=== PATIENT | female | born 1930 | race Caucasian/White ===

== ENCOUNTER 2018-03-14 03:17 | Emergency (ER) | payer MEDICARE ==
[~2018-03-14] VITALS: Ht 157.5 cm; Wt 76.2 kg
[~2018-03-14 03:17] MED LIST: ASPIR 8181 MG PO; CARDIZEM120 MG PO; CIPROFLOXACIN500 M1 PO; CORTISPORIN EAR10 ML EACH EAR; LISINOPRIL40 MG PO; MAGNESIUM OXID400 MG PO; METFORMIN HCL1000 MG PO; METOPROLOL TART25 MG PO; PLAVIX75 MG PO; PRAVASTATIN SOD40 MG PO; SPIRONOLACTONE25 MG PO
--- NOTE | 2018-03-14 04:33 | Diagnostic Imaging Report ---
History:Fall Comparison studies:None Technique: Axial images were obtained from the skull base to the vertex. Coronal and sagittal images reconstructed from the axial data. Intravenous contrast: None Findings: Scalp/skull: No abnormalities. Extra-axial spaces: No masses. No fluid collections. Brain sulci: Moderately prominent. Ventricles: Moderate compensatory dilatation. No hydrocephalus. Parenchyma: Subtle hypodensities in the supratentorial white matter are small vessel ischemic changes. No masses, hemorrhage, acute or chronic cortical vascular insults. Sellar/suprasellar region: No abnormalities. Craniocervical junction: Patent foramen magnum. No Chiari one malformation. Incidental findings: Atherosclerotic calcifications in the carotid siphons . Impression: No acute abnormalities. Chronic findings: 1. Moderate generalized volume loss. 2. Mild supratentorial white matter small vessel ischemic changes. Signed by: Dr. Jarrett Calderon M.D. on 03/14/2018 4:29 AM
--- NOTE | 2018-03-14 04:36 | Diagnostic Imaging Report ---
History: Fall Comparison studies: None Technique: Axial images were obtained through the cervical region.. Coronal and sagittal images reconstructed from the axial data.. Intravenous contrast: None Findings: Fractures: None. Soft tissues: No gross abnormalities. Atlantoaxial articulation: Intact. Alignment: Normal lordosis. No scoliosis. Cervicomedullary junction: No abnormalities. The foramen magnum is patent. Vertebrae: Bone diffusely demineralized. No infection or neoplasm. Degenerative changes: Degenerated discs from C2 through T2, worst at C6-7. Moderate scattered facet and uncovertebral arthrosis throughout the cervical region. Foraminal stenosis, moderate left at C3-4, C4-5, mild right at C5-6, moderate left at C6-7. Mild spinal canal stenosis at C6-C7 due to a disc osteophyte complex. IMPRESSION: 1. No acute abnormalities. 2. Cannot adequately evaluate for ligament, spinal cord and or vascular abnormalities. 3. Degenerative changes as described Signed by: Dr. Jarrett Calderon M.D. on 03/14/2018 4:32 AM
[2018-03-14] MEDS ORDERED: TETANUS/DIPHTHERIA TOX ADULT 0.5 ML SYR IM ONE (05:00)
== END 2018-03-14 06:15 | disposition home or self-care (01) ==
LOC: ER 03:17
DX: S01.112A Laceration without foreign body of left eyelid and periocular area, initial encounter (principal); W06.XXXA Fall from bed, initial encounter; Y93.84 Activity, sleeping; Y92.003 Bedroom of unspecified non-institutional (private) residence as the place of occurrence of the external cause; I10 Essential (primary) hypertension; E11.9 Type 2 diabetes mellitus without complications
CPT/HCPCS: 70450; 72125; 90471; 90714; 99284

== ENCOUNTER 2019-12-06 17:07 | Emergency (ER) | payer MEDICARE ==
[~2019-12-06] VITALS: Ht 157.5 cm; Wt 76.2 kg
[2019-12-06] MEDS ORDERED: ASPIRIN 81 MG CHEW TAB PO ONE (17:15)
--- NOTE | 2019-12-06 18:27 | Diagnostic Imaging Report ---
Examination: Single AP view of the chest. COMPARISON: None. INDICATION: Chest pain DISCUSSION: Lines/tubes: None. Lungs: The lungs are well inflated and clear. No pneumonia or pulmonary edema. Pleura: No pleural effusion or pneumothorax. Heart and mediastinum: The heart and the mediastinum are unremarkable. Bones and soft tissues: No acute bony abnormalities. IMPRESSION: 1. No acute cardiopulmonary abnormalities. Signed by: Dr. Ruben Hutson M.D. on 12/06/2019 6:24 PM
--- OUTSIDE RECORDS SUMMARY | 2019-12-06 19:46 | XMS REPORT ---
[facility] Address Unknown Phone Unavailable Care Team Providers Care Lead Relay Tester Name Role Phone Ramiro MIX Unavailable Unavailable Problems This patient has no known problems. Allergies, Adverse Reactions, Alerts This patient has no known allergies or adverse reactions. Medications This patient has no known medications. Results Test Description Test Time Test Comments Text Results Atomic Results Result Comments CHEST SINGLE (NOT PORTABLE) 2019-12-06 18:24:00 [place] [address] Patient Name: MARK CASON MR #: [id number] : 1930 Age/Sex: 89/F Req #: [id number] Adm Physician: Ordered by: IMELDA MIX MD Report #: [id number] Location: ER Room/Bed: Procedure: [id number] DX/CHEST SINGLE (NOT PORTABLE) Exam Date: Exam Time: REPORT STATUS: Signed Examination: Single AP view of the chest. COMPARISON: No ne. INDICATION: Chest pain DISCUSSION: Lines/tubes: None. Lungs: The lungs are well inflated and clear. No pneumonia or pulmonary edema. Pleura: No pleural effusion or pneumothorax. Heart and mediastinum: The heart and the mediastinum are unremarkable. Bones and soft tissues: No acute bony abnormalities. IMPRESSION: 1. No acute cardiopulmonary abnormalities. Signed by: Dr. Garcia Matute M.D. on 12/06/2019 6:24 PM Dictated By: GARCIA MATUTE MD 23 Transcribed By: JAIRO on 12/06/191823 COPY TO: IMELDA MIX MD CT BRAIN WO [facility] [address] [address] Patient Name: MARK CASON MR #: [id number] : 1930 Age/Sex: 87/F Req #: [id number] Adm Physician: Ordered by: IMELDA MIX MD Report #: [id number] Location: ER Room/Bed: Procedure: [id number] CT/CT BRAIN WO Exam Date: 03/14/18 Exam Time: 0405 REPORT STATUS: Signed History:Fall Comparison studies:None Technique: Axial images were obtained from the skull base to the vertex. Coronal and sagittal images reconstructed from the axial data. Intravenous contrast: None Findings: Scalp/skull: No abnormalities. Extra-axial spaces: No masses. No fluid collections. Brain sulci: Moderately prominent. Ventricles: Moderate compensatory dilatation. No hydrocephalus. Parenchyma: Subtle hypodensities in the supratentorial white matter are small vessel ischemic changes. No masses, hemorrhage, acute or chronic cortical vascular insults. Sellar/suprasellar region: No abnormalities. Craniocervical junction: Patent foramen magnum. No Chiari one malformation. Incidental findings: Atherosclerotic calcifications in the carotid siphons . Impression: No acute abnormalities. Chronic findings: 1. Moderate generalized volume loss. 2. Mild supratentorial white matter small vessel ischemic changes. Signed by: Dr. Jarrett Calderon M.D. on 03/14/2018 4:29 AM Dictated By: JARRETT CALDERON MD, MD 8 Transcribed By: JAIRO on 03/14/18428 COPY TO: IMELDA MIX MD CT CERVICAL SPINE WO [place] [address] Patient Name: MARK CASON MR #: [id number] : 1930 Age/Sex: 87/F Req #: [id number] Adm Physician: Ordered by: IMELDA MIX MD Report #: [id number] Location: ER Room/Bed: Procedure: [id number] CT/CT CERVICAL SPINE WO Exam Date: 03/14/18 Exam Time: 5 REPORT STATUS: Signed History: Fall Comparison studies: None Technique: Axial images were obtained through the cervical region.. Coronal and sagittal images reconstructed from the axial data.. Intravenous contrast: None Findings: Fractures: None. Soft tissues: No gross abnormalities. Atlantoaxial articulation: Intact. Alignment: Normal lordosis. No scoliosis. Cervicomedullary junction: No abnormalities. The foramen magnum is patent. Vertebrae: Bone diffusely demineralized. No infection or neoplasm. Degenerative changes: Degenerated discs from C2 through T2, worst at C6-7. Moderate scattered facet and uncovertebral arthrosis throughout the cervical region. Foraminal stenosis, moderate left at C3-4, C4-5, mild right at C5-6, moderate left at C6-7. Mild spinal canal stenosis at C6-C7 due to a disc osteophyte complex. IMPRESSION: 1. No acute abnormalities. 2. Cannot adequately evaluate for ligament, spinal cord and or vascular abnormalities. 3. Degenerative changes as described Signed by: Dr. Jarrett Calderon M.D. on 03/14/2018 4:32 AM Dictated By: JARRETT SHARP MD, MD 1 Transcribed By: JAIRO on 03/14/18431 COPY TO: IMELDA MIX MD
[2019-12-06 20:14] LABS: BASOPHILS # (AUTO) 0.1 (0.0-0.1); BASOPHILS % 0.6 % (0.0-1.0); EOSINOPHILS # (AUTO) 0.2 (0.0-0.4); EOSINOPHILS % 1.7 % (0.0-6.0); HEMATOCRIT 37.8 % (34.2-44.1); HEMOGLOBIN 12.3 g/dL (12.0-16.0); LYMPHOCYTES # (AUTO) 3.2 (1.0-3.2); LYMPHOCYTES % 30.5 % (18.0-39.1); MEAN CORPUSCULAR HEMOGLOBIN 30.1 pg (28-32); MEAN CORPUSCULAR HGB CONC 32.5 g/dL (31-35); MEAN CORPUSCULAR VOLUME 92.6 fL (81-99); MONOCYTES # (AUTO) 0.7 (0.2-0.8); MONOCYTES % 6.8 % (4.4-11.3); NEUTROPHILS # (AUTO) 6.3 (2.1-6.9); NEUTROPHILS % 60.1 % (38.7-80.0); PLATELET COUNT 266 x10e3/uL (140-360); RED BLOOD COUNT 4.08 x10e6/uL (3.6-5.1); RED CELL DISTRIBUTION WIDTH 13.8 % (11.7-14.4)
[2019-12-06] MEDS ORDERED: SODIUM CHLORIDE 0.9% 1000ML 1,000 ML ONE (20:14)
[2019-12-06 20:19] LABS: INR 0.98; PROTHROMBIN TIME 13.2 seconds (11.9-14.5)
[2019-12-06 20:20] LABS: PARTIAL THROMBOPLASTIN TIME 27.1 seconds (23.8-35.5)
[2019-12-06 20:31] LABS: ALANINE AMINOTRANSFERASE 22 IU/L (0-55); ALBUMIN 3.8 g/dL (3.5-5.0); ALBUMIN/GLOBULIN RATIO 1.2 (0.8-2.0); ALKALINE PHOSPHATASE 53 IU/L (40-150); ANION GAP 18.2 mmol/L (8-16); BLOOD UREA NITROGEN 19 mg/dL (7-26); BUN/CREATININE RATIO 20 (6-25); CALCIUM 9.8 mg/dL (8.4-10.2); CARBON DIOXIDE 23 mmol/L (22-29); CHLORIDE 101 mmol/L (98-107); CREATINE KINASE 116 IU/L (29-168); CREATININE, SERUM 0.94 mg/dL (0.57-1.11); EST GLOMERULAR FILTRATION RATE 56 ML/MIN (60-); GLUCOSE 111 mg/dL (74-118); POTASSIUM 4.2 mmol/L (3.5-5.1); SODIUM 138 mmol/L (136-145)
== END 2019-12-06 22:00 | disposition home or self-care (01) ==
LOC: ER 17:34
DX: R07.89 Other chest pain (principal); I10 Essential (primary) hypertension; E11.9 Type 2 diabetes mellitus without complications; I25.10 Atherosclerotic heart disease of native coronary artery without angina pectoris; Z95.5 Presence of coronary angioplasty implant and graft
CPT/HCPCS: 36415; 71045; 80053; 82550; 82553; 83735; 83880; 84484; 85025; 85610; 85730; 93005; 99283; J7030

== ENCOUNTER 2020-04-12 12:50 | Observation (INO) | payer MEDICARE ==
[~2020-04-12] VITALS: Ht 160 cm; Wt 65.5 kg
--- OUTSIDE RECORDS SUMMARY | 2020-04-12 12:53 | XMS REPORT | Continuity of Care Document ---
Author Author [facility] Organization [facility] Address [address] [place] [address] Phone Unavailable Care Team Providers Care Tc Operator Name Role Phone Lesly SCHULTZ MD PCP Ramiro MIX Attphys Unavailable Payers Payer Name Policy Type Policy Number Effective Date Expiration Date Lesly Benito [employer] [id number] 2014 00:00:00 [facility] Problems This patient has no known problems. Allergies, Adverse Reactions, Alerts Allergy Name Allergy Type Status Severity Reaction(s) Onset Date Inacti ve Date Treating Clinician Comments Source meperidine HCl Allergy to Substance Active 2018-03-14 00:00 :00 [facility] Medications Ordered Medication Name Filled Medication Name Start Date Stop Da te Current Medication? Ordering Clinician Indication Dosage Frequency Signature (SIG) Comments Components Source Aspirin (Aspir 81) 81 Mg Tablet. Aspirin (Aspir 81) 81 Mg Tablet. Yes 81 Daily [facility] Clopidogrel Bisulfate (Plavix) 75 Mg Tablet Clopidogre l Bisulfate (Plavix) 75 Mg Tablet Yes 75 Daily [facility] Diltiazem Hcl (Cardizem) 120 Mg Tablet Diltiazem Hcl (Cardizem) 120 Mg Tablet Yes 120 Twice A Day [facility] Lisinopril 40 Mg Tablet Lisinopril 40 Mg Tablet Yes 40 Daily [facility] Metformin Hcl 1,000 Mg Tablet Metformin Hcl 1,000 Mg Tablet Yes 1000 Twice A Day [facility] Metoprolol Tartrate 25 Mg Tablet Metoprolol Tartrate 25 Mg Tablet Yes 25 Twice A Day [facility] Pravastatin Sodium 40 Mg Tablet Pravastatin Sodium 40 Mg Tablet Yes 20 Bedtime [facility] Spironolactone 25 Mg Tablet Spironolactone 25 Mg Tablet Yes 25 Twice A Day [facility] Ciprofloxacin/Ciprofloxa Hcl (Ciprofloxa bernardo Er 500 Mg Tablet) 500 Mg Tbmp.24hr, 1 Tab Oral Ciprofloxacin/Ciprofloxa Hcl (Ciprofloxa bernardo Er 500 Mg Tablet) 500 Mg Tbmp.24hr, 1 Tab Oral 2017-04-04 00:00:00 No 1 Tw ice A Day [facility] Magnesium Oxide 400 Mg Tablet, 400 Mg Oral Magnesium O xide 400 Mg Tablet, 400 Mg Oral 2017-04-04 00:00:00 No 400 Twice A Day [facility] Neomycin/Polymyxin B Sulf/Hc (Cortispori n Ear Solution) 10 Ml Solution, 4 Each Ear Neomycin/Polymyxin B Sulf/Hc (Cortispori n Ear Solution) 10 Ml Solution, 4 Each Ear 2017-04-04 00:00:00 No 4 Four Times Cindy y [facility] Procedures Procedure Date / Time Performed Performing Clinician [facility] X-ray of chest, single view 2019-12-06 00:00:00 WARRENIMELDA Ramiro [facility] Encounters Start Date/Time End Date/Time Encounter Type Admission Type Att[facility] Facility Care Department Encounter ID Source 2019-12-06 17:34:00 2019-12-06 22:00:00 Departed Emergency Room 1 [facility] [id number] [facility] 2018-03-14 03:17:00 2018-03-14 06:15:00 Departed Emergency Room 1 [facility] [id number] [facility] Results Test Description Test Time Test Comments Results Result Comments Source Magnesium Level 2019-12-06 21:00:00 Test Item Magnesium Level (test code = 93903-1) 1.4 1.3-2.1 [facility] Dqotfxa2655-17-86 20:56:00* Test Item Value Reference Range Interpretation Comments B-Type Natriuretic Peptide (test code = 60872-5) 34.4 0-100 [facility]ase JF2527-15-11 20:39:00* Test Item Value Reference Range Interpretation Comments Creatine Kinase MB (test code = 98574-3) 0.80 0-5.0 [facility] Q6830-04-98 20:39:00* Test Item Value Reference Range Interpretation Comments Troponin I (test code = FQM4800) < 0.001 0-0.300 [facility] Excie3970-48-49 20:31:00* Test Item Value Reference Range Interpretation Comments Sodium Level (test code = 2951-2) 138 136-145 [facility] Saryg9759-16-34 20:31:00* Test Item Value Reference Range Interpretation Comments Potassium Level (test code = 2823-3) 4.2 3.5-5.1 [facility]loride Gqajs1146-22-02 20:31:00* Test Item Value Reference Range Interpretation Comments Chloride Level (test code = 2075-0) 101 98-107 [facility] Dioxide Qzyjk8127-23-40 20:31:00* Test Item Value Reference Range Interpretation Comments Carbon Dioxide Level (test code = 2028-9) 23 22-29 [facility]Anion Axa0362-23-89 20:31:00* Test Item Value Reference Range Interpretation Comments Anion Gap (test code = 83911-0) 18.2 8-16 H [facility] Urea Czerdpwj0981-97-22 20:31:00* Test Item Value Reference Range Interpretation Comments Blood Urea Nitrogen (test code = 3094-0) 19 7-26 [facility]inine2020-02-04 20:31:00* Test Item Value Reference Range Interpretation Comments Creatinine (test code = 2160-0) 0.94 0.57-1.11 [facility]UN/Creatinine Quldl9817-19-20 20:31:00* Test Item Value Reference Range Interpretation Comments BUN/Creatinine Ratio (test code = 3097-3) 20 6-25 [facility]Estimat Glomerular Filtration Rate 2019-12-06 20:31:00* Test Item Value Reference Range Interpretation Comments Estimat Glomerular Filtration Rate (test code = 217889569) 56 >60 L Ranges were taken from the National Kidney Disease Education Program and the [employer] literature.Reference ranges:60 or greater: Ethpcp93-23 ( for 3 consecutive months): Chronic kidney disease 15 or less: Kidney failureHemphill County HospitalGlucose Rpkja4536-39-02 20:31:00* Test Item Value Reference Range Interpretation Comments Glucose Level (test code = CSU7916) 111 74-118 [facility]Calcium Wudft0771-80-28 20:31:00* Test Item Value Reference Range Interpretation Comments Calcium Level (test code = 34352-9) 9.8 8.4-10.2 [facility] HospitalTotal Wkmkeuexj2275-83-52 20:31:00* Test Item Value Reference Range Interpretation Comments Total Bilirubin (test code = 1975-2) 0.3 0.2-1.2 [facility] HospitalAspartate Amino Transf (AST/SGOT) 2019-12-06 20:31:00* Test Item Value Reference Range Interpretation Comments Aspartate Amino Transf (AST/SGOT) (test code = Aspartate Amino Transf (AST/SGOT)) 16 5-34 [facility]Alanine Aminotransferase (ALT/SGPT) 2019-12-06 20:31:00* Test Item Value Reference Range Interpretation Comments Alanine Aminotransferase (ALT/SGPT) (test code = 1742-6) 22 0-55 [facility] HospitalTotal Ghtsgtr8301-44-27 20:31:00* Test Item Value Reference Range Interpretation Comments Total Protein (test code = 2885-2) 6.9 6.5-8.1 [facility] HospitalAlbumin2020-02-04 20:31:00* Test Item Value Reference Range Interpretation Comments Albumin (test code = 1751-7) 3.8 3.5-5.0 [facility]Globulin2020-02-04 20:31:00* Test Item Value Reference Range Interpretation Comments Globulin (test code = 64714-6) 3.1 2.3-3.5 [facility] HospitalAlbumin/Globulin Oainv1318-12-07 20:31:00 * Test Item Value Reference Range Interpretation Comments Albumin/Globulin Ratio (test code = 1759-0) 1.2 0.8-2.0 [facility] HospitalAlkaline Fxkahefaoxs6907-11-39 20:31:00* Test Item Value Reference Range Interpretation Comments Alkaline Phosphatase (test code = 6768-6) 53 40-150 [facility] HospitalCreatine Xuswlg2933-69-65 20:31:00* Test Item Value Reference Range Interpretation Comments Creatine Kinase (test code = 2157-6) 116 29-168 [facility] HospitalProthrombin Ewju7959-27-15 20:22:00* Test Item Value Reference Range Interpretation Comments Prothrombin Time (test code = 5902-2) 13.2 11.9-14.5 [facility] HospitalProthromb Time International Ratio 2019-12-06 20:22:00* Test Item Value Reference Range Interpretation Comments Prothromb Time International Ratio (test code = 6301-6) 0.98 Oral Anticoagulant Therapy INR Values:1. Low Intensity Therapy 1.5 - 2.02 . Moderate Intensity Therapy 2.0 - 3.03. High Intensity Therapy(1) 2.5 - 3. 54. High Intensity Therapy(2) 3.0 - 4.05. Panic Value INR > 5.0 [facility] HospitalActivated Partial Thromboplast Time 2019-12-06 20:22:00* Test Item Value Reference Range Interpretation Comments Activated Partial Thromboplast Time (test code = 83955-5) 27.1 23.8-35.5 [facility] HospitalWhite Blood Rvxoj1775-29-85 20:18:00* Test Item Value Reference Range Interpretation Comments White Blood Count (test code = 6690-2) 10.48 4.8-10.8 [facility] HospitalRed Blood Ukkrn1515-86-17 20:18:00* Test Item Value Reference Range Interpretation Comments Red Blood Count (test code = 789-8) 4.08 3.6-5.1 [facility] HospitalHemoglobin2020-02-04 20:18:00* Test Item Value Reference Range Interpretation Comments Hemoglobin (test code = 65815-4) 12.3 12.0-16.0 [facility] HospitalHematocrit2020-02-04 20:18:00* Test Item Value Reference Range Interpretation Comments Hematocrit (test code = 4544-3) 37.8 34.2-44.1 [facility] HospitalMean Corpuscular Xhyliv2099-36-44 20:18:00* Test Item Value Reference Range Interpretation Comments Mean Corpuscular Volume (test code = 787-2) 92.6 81-99 [facility] HospitalMean Corpuscular Aueggqhyks5223-50-11 20:18:00* Test Item Value Reference Range Interpretation Comments Mean Corpuscular Hemoglobin (test code = 785-6) 30.1 28-32 [facility] HospitalMean Corpuscular Hemoglobin Concent 2019-12-06 20:18:00* Test Item Value Reference Range Interpretation Comments Mean Corpuscular Hemoglobin Concent (test code = 786-4) 32.5 31-35 [facility] HospitalRed Cell Distribution Ctbmo7440-23-21 20:18:00* Test Item Value Reference Range Interpretation Comments Red Cell Distribution Width (test code = 82520-0) 13.8 11.7 -14.4 [facility] HospitalPlatelet Kecxg3861-33-64 20:18:00* Test Item Value Reference Range Interpretation Comments Platelet Count (test code = 777-3) 266 140-360 [facility] HospitalNeutrophils (%) (Auto)2019-12-06 20:18:00 * Test Item Value Reference Range Interpretation Comments Neutrophils (%) (Auto) (test code = 32507-8) 60.1 38.7-80.0 [facility] HospitalLymphocytes (%) (Auto)2019-12-06 20:18:00 * Test Item Value Reference Range Interpretation Comments Lymphocytes (%) (Auto) (test code = 736-9) 30.5 18.0-39.1 [facility] HospitalMonocytes (%) (Auto)2019-12-06 20:18:00* Test Item Value Reference Range Interpretation Comments Monocytes (%) (Auto) (test code = 5905-5) 6.8 4.4-11.3 [facility]Eosinophils (%) (Auto)2019-12-06 20:18:00 * Test Item Value Reference Range Interpretation Comments Eosinophils (%) (Auto) (test code = 713-8) 1.7 0.0-6.0 [facility]Basophils (%) (Auto)2019-12-06 20:18:00* Test Item Value Reference Range Interpretation Comments Basophils (%) (Auto) (test code = 706-2) 0.6 0.0-1.0 [facility] HospitalIM GRANULOCYTES %2019-12-06 20:18:00* Test Item Value Reference Range Interpretation Comments IM GRANULOCYTES % (test code = IM GRANULOCYTES %) 0.3 0.0- 1.0 [facility] HospitalNeutrophils # (Auto)2019-12-06 20:18:00* Test Item Value Reference Range Interpretation Comments Neutrophils # (Auto) (test code = 751-8) 6.3 2.1-6.9 [facility] HospitalLymphocytes # (Auto)2019-12-06 20:18:00* Test Item Value Reference Range Interpretation Comments Lymphocytes # (Auto) (test code = 97037-2) 3.2 1.0-3.2 [facility] HospitalMonocytes # (Auto)2019-12-06 20:18:00* Test Item Value Reference Range Interpretation Comments Monocytes # (Auto) (test code = 742-7) 0.7 0.2-0.8 [facility]Eosinophils # (Auto)2019-12-06 20:18:00* Test Item Value Reference Range Interpretation Comments Eosinophils # (Auto) (test code = 711-2) 0.2 0.0-0.4 [facility] HospitalBasophils # (Auto)2019-12-06 20:18:00* Test Item Value Reference Range Interpretation Comments Basophils # (Auto) (test code = 704-7) 0.1 0.0-0.1 [facility] HospitalAbsolute Immature Granulocyte (auto 2019-12-06 20:18:00* Test Item Value Reference Range Interpretation Comments Absolute Immature Granulocyte (auto (ann t code = Absolute Immature Granulocyte (auto) 0.03 0-0.1 [facility] HospitalCHEST SINGLE (NOT PORTABLE)2019-12-06 18:24:00 [facility] [address] [place] [address] Patient Name: MARK CASON MR #: [id number] : 1930 Age/Sex: 89/F Req #: [id number] Adm Physician: Ordered by: IMELDA MIX MD Report #: [id number] Location: ER Room/Bed: Procedure: [id number] DX/C HEST SINGLE (NOT PORTABLE) Exam Date: Exam Time: REPORT STATUS: Signed Examination: Single AP view of the chest. COMPARISON: None. INDICATION: Chest pain DISCUSSION: Lines/tubes: None. Lungs: The lungs are well inflated and clear. No pneumonia or pulmonary edema. Pleura: No pleural e ffusion or pneumothorax. Heart and mediastinum: The heart and the mediasti num are unremarkable. Bones and soft tissues: No acute bony abnormalities. IMPRESSION: 1. No acute cardiopulmonary abnormalities. Sign ed by: Dr. Garcia Matute M.D. on 12/06/2019 6:24 PM Dictated By: GARCIA MATUTE MD 23 Tra nscribed By: JAIRO on 12/06/191823 COPY TO: IMELDA MIX MD CT BRAIN WO [facility] [address] [address] Patient Name: MARK CASON MR #: [id number] : 1930 Age/Sex: 87/F Req #: [id number] Adm Physician: Ordered by: IMELDA MIX MD Report #: [id number] Location: ER Room/Bed: Procedure: [id number] CT/CT BRAIN WO Exam Date: 03/02 01/17 Exam Time: 0405 REPORT STATUS: Signed H istory:Fall Comparison studies:None Technique: Axial images were obtain ed from the skull base to the vertex. Coronal and sagittal images reconstructe d from the axial data. Intravenous contrast: None Findings: Scalp/sk ull: No abnormalities. Extra-axial spaces: No masses. No fluid colle ctions. Brain sulci: Moderately prominent. Ventricles: Moderate compensat ory dilatation. No hydrocephalus. Parenchyma: Subtle hypodensities in th e supratentorial white matter are small vessel ischemic changes. No masses, he morrhage, acute or chronic cortical vascular insults. Sellar/suprasellar region: No abnormalities. Craniocervical junction: Patent foramen magnum. No Chiari one malformation. Incidental findings: Atherosclerotic calcificati ons in the carotid siphons . Impression: No acute abnormalities. Chronic findings: 1. Moderate generalized volume loss. 2. Mild supratentor ial white matter small vessel ischemic changes. Signed by: Dr. Jarrett josue M.D. on 03/14/2018 4:29 AM Dictated By: JARRETT CALDERON MD, MD 8 Transcr ibed By: JAIRO on 03/14/18428 COPY TO: IMELDA MIX MD CT CERVICAL SPINE WO [facility] [address] [address] Patient Name: MARK CASON MR #: [id number] : 1930 Age/Sex: 87/F Req #: [id number] Adm Physician: Ordered by: IMELDA MIX MD Report #: [id number] Location: ER Room/Bed: Procedure: [id number] CT/CT CERVICAL SPINE WO Exam D ate: 03/14/18 Exam Time: 404 REPORT STATUS: Si gned History: Fall Comparison studies: None Technique: Axial images were obtained through the cervical region.. Coronal and sagittal images recon structed from the axial data.. Intravenous contrast: None Findings: Fractures: None. Soft tissues: No gross abnormalities. Atlantoaxial artic ulation: Intact. Alignment: Normal lordosis. No scoliosis. Cervicomedullary junction: No abnormalities. The foramen magnum is patent. Vertebrae: Bon e diffusely demineralized. No infection or neoplasm. Degenerative changes : Degenerated discs from C2 through T2, worst at C6-7. Moderate scattered f acet and uncovertebral arthrosis throughout the cervical region. Foraminal s tenosis, moderate left at C3-4, C4-5, mild right at C5-6, moderate left at C6- 7. Mild spinal canal stenosis at C6-C7 due to a disc osteophyte complex. IMPRESSION: 1. No acute abnormalities. 2. Cannot adequately evaluate for ligament, spinal cord and or vascular abnormalities. 3. Degenerative changes as described Signed by: Dr. Jarrett Calderon M.D. on 03/14/2018 4:32 AM Dictated By: JARRETT CALDERON MD, MD 1 Transcribed By: JAIRO on 03/14 COPY TO: IMELDA MIX MD
[2020-04-12] MEDS ORDERED: CEFTRIAXONE SOD 1 GM VIAL IV ONE (13:15)
[2020-04-12] MEDS ORDERED: CEFTRIAXONE SOD 1 GM/NS 50 ML 50 ML IV ONE ×2 (13:30→14:35)
--- NOTE | 2020-04-12 13:33 | Diagnostic Imaging Report ---
EXAMINATION: CXR 2 VIEW - HOPD INDICATION: Shortness of breath COMPARISON: None FINDINGS: LINES/TUBES:None LUNGS:The lungs are well-inflated. No focal consolidation or pulmonary edema. PLEURA:No pleural effusion or pneumothorax. MEDIASTINUM:The cardiomediastinal silhouette appears normal in size and shape. BONES/SOFT TISSUES:No acute osseous injury. ABDOMEN:No free air under the diaphragm. IMPRESSION: No focal pneumonia or pulmonary edema. Signed by: Domingo Bhatia MD on 04/12/2020 1:29 PM
--- NOTE | 2020-04-12 13:40 | Emergency Department Note ---
History of Present Illnes History of Present Illness Chief Complaint: General Medicine Complaints History of Present Illness This is a 89 year old female hx cad, htn c/o SOB, difficult urination for few days . at base [place], pt walks with walker, feed herself, use bathroom by her self but no longer cooks. Historian: Patient, Family Member Arrival Mode: Car Machine Former Required: No Onset (how long ago): day(s) Radiation: Reports non-radiation Severity: moderate Onset quality: gradual Duration (how long): day(s) Timing of current episode: constant Progression: waxing and waning Relieving factors: none Exacerbating factors: none Associated symptoms: Reports fever/chills, Reports shortness of breath Treatments prior to arrival: none Past Medical/Family History Physician Review I have reviewed the patient's past medical and family history. Any updates have been documented here. Past Medical History Recent Fever: No Clinical Suspicion of Infectio: No Past Medical History: Hypertension, Diabetes, CAD Other Medical History: dyslipidemia CHOLESTEROL dyslipidemia radiculitis Past Surgical History: Cholecysctectomy, Hysterectomy, , Cataract Removal Other Surgery: CARDIAC STENT RIGHT SHOULDER PARATHYROID BOWEL RESECTION HEMORRHOIDS BOWL RESECTION CARPAL TUNNEL RIGHT HAND Social History Smoking Cessation: Unknown if ever smoked Alcohol Use: None Any Illegal Drug Use: No TB Exposure/Symptoms: No Physically hurt or threatened: No Family History Family history of heart diseas: No Other Last Tetanus: UNK Any Pre-Existing Lines (PICC,: No Review of Systems Review of Systems Constitutional: Reports as per HPI, Reports chills, Reports weakness EENTM: Reports no symptoms Cardiovascular: Reports edema Respiratory: Reports as per HPI, Reports dyspnea Gastrointestinal: Reports no symptoms Genitourinary: Reports as per HPI, Reports dysuria, Reports pain, Reports other (bladder pain, back pain, unable to void for 8 hours) Musculoskeletal: Reports no symptoms Integumentary: Reports no symptoms Neurological: Reports no symptoms Psychological: Reports no symptoms Endocrine: Reports no symptoms Hematological/Lymphatic: Reports no symptoms Physical Exam Related Data Allergies: Coded Allergies: meperidine HCl (Verified Allergy, Unknown, 03/14/18) Vital signs reviewed: Yes Physical Exam CONSTITUTIONAL Constitutional: Reports well-nourished HENT HENT: Reports normocephalic, Reports atraumatic, Reports oropharynx clear/moist, Reports nose normal HENT L/R: Reports left ext ear normal, Reports right ext ear normal EYES Eyes: Reports PERRL, Reports conjunctivae normal NECK Neck: Reports ROM normal PULMONARY Pulmonary: Reports effort normal, Reports breath sounds normal CARDIOVASCULAR Cardiovascular: Reports regular rhythm, Reports heart sounds normal, Reports capillary refill normal, Reports normal rate GASTROINTESTINAL Abdominal: Reports soft, Reports bowel sounds normal, Reports left CVA tenderness GENITOURINARY Genitourinary: Reports exam deferred SKIN Skin: Reports warm, Reports dry MUSCULOSKELETAL Musculoskeletal: Reports edema, Reports other (trace edema both leg) NEUROLOGICAL Neurological: Reports alert, Reports oriented x 3, Reports no gross motor or s ensory deficits PSYCHOLOGICAL Psychological: Reports mood/affect normal, Reports judgement normal Results Laboratory Lab results reviewed: Yes Laboratory comments Ddimer is high, high risk for PE, UA c/w pyelonephritis. Imaging Imaging results reviewed: Yes Imaging Comments CT and xray show no pna, no PE Diagnostics Tests Diagnostic test(s) reviewed: Yes Procedures 12 Lead ECG Interpretation ECG Interpretation : ECG: ECG 1 Machine Former: Interpreted by ED physician Date: Apr 12, 2020 Time: 13:31 Prior ECG tracings: reviewed Rhythm: sinus rhythm QRS axis: normal Conduction: LAFB Clinical Impression: abnormal ECG Additional Comments old LBBB Assessment & Plan Medical Decision Making MDM 89 yo CF with multiple medical problems, has flank pain f/c, UA has nitrite positive, clinically has pyelonephritis. Assessment & Plan Final Impression: (1) Pyelonephritis (2) Dyspnea on minimal exertion Home Meds Reported Medications Aspirin (ASPIR 81) 81 Mg Tablet.dr, 81 MG PO DAILY 05/26/13 Spironolactone (SPIRONOLACTONE) 25 Mg Tablet, 25 MG PO BID 05/26/13 Diltiazem Hcl (CARDIZEM) 120 Mg Tablet, 120 MG PO BID 05/26/13 Clopidogrel Bisulfate* (PLAVIX) 75 Mg Tablet, 75 MG PO DAILY 05/26/13 Metformin Hcl (METFORMIN HCL) 1,000 Mg Tablet, 1000 MG PO BID 05/26/13 Lisinopril (LISINOPRIL) 40 Mg Tablet, 40 MG PO DAILY 05/26/13 Metoprolol Tartrate (METOPROLOL TARTRATE) 25 Mg Tablet, 25 MG PO BID 05/26/13 Pravastatin Sodium (PRAVASTATIN SODIUM) 40 Mg Tablet, 20 MG PO HS 05/26/13 Medications in the ED Ceftriaxone Sodium 1 gm ONCE ONCE IV ; Start 04/12/20 at 13:15; Stop 04/12/20 at 13:16; Status UNV Ceftriaxone Sodium 50 ml @ 100 mls/hr ONCE ONCE IV ; Start 04/12/20 at 13:30; Stop 04/12/20 at 13:59 Physician Attestation Provider Attestation case discussed with dr Ramiro Belle her PCP, placed in observation per Dr Belle. ANIVAL SPARKS MD Apr 12, 2020 13:40
[2020-04-12] MEDS ORDERED: SODIUM CHLORIDE 0.9% 500ML 500 ML IV STA (15:07)
[2020-04-12] MEDS ORDERED: ACETAMINOPHEN 325 MG TAB PO PRN (15:15)
[2020-04-12] MEDS ORDERED: CLONIDINE HCL 0.1 MG TAB PO PRN (15:15)
[2020-04-12] MEDS ORDERED: DIPHENHYDRAMINE HCL INJ 50 MG/ML VIAL IV PRN (15:15)
[2020-04-12] MEDS ORDERED: ENALAPRILAT IV INJ 1.25 MG/ML VIAL IV PRN (15:15)
[2020-04-12] MEDS ORDERED: ONDANSETRON HCL INJ 2MG/ML 2ML 2 MG/ML VIAL IV PRN (15:15)
[2020-04-12] MEDS ORDERED: IOPAMIDOL 370 MG/ML 200 ML INFUS..BTL INJ ONE (15:16)
[2020-04-12] MEDS ORDERED: SODIUM CHLORIDE 0.9% 50ML 50 ML ONE (15:17)
--- OUTSIDE RECORDS SUMMARY | 2020-04-12 16:04 | XMS REPORT | Continuity of Care Document ---
Author Author [facility] t Organization [facility] Address [address] [place] [address] Phone Unavailable Care Team Providers Care Management Specialist Name Role Phone Lesly SCHULTZ MD PCP Rachel SPARKS Attphys Unavailable SWEET, A LAIRD Attphys Unavailable Payers Payer Name Policy Type Policy Number Effective Date Expiration Date Lesly Benito Medicare [id number] 2014 00:00:00 [facility] Problems This patient has no known problems. Allergies, Adverse Reactions, Alerts Allergy Name Allergy Type Status Severity Reaction(s) Onset Date Inacti ve Date Treating Clinician Comments Source meperidine HCl Allergy to Substance Active 2018-03-14 00:00 :00 [facility] Medications Ordered Medication Name Filled Medication Name Start Date Stop Da te Current Medication? Ordering Clinician Indication Dosage Frequency Signature (SIG) Comments Components Source Aspirin (Aspir 81) 81 Mg Tablet. Aspirin (Aspir 81) 81 Mg Tablet. Yes 81 Daily [facility] Clopidogrel Bisulfate (Plavix) 75 Mg Tablet Clopidogre l Bisulfate (Plavix) 75 Mg Tablet Yes 75 Daily [facility] Diltiazem Hcl (Cardizem) 120 Mg Tablet Diltiazem Hcl (Cardizem) 120 Mg Tablet Yes 120 Twice A Day [facility] Lisinopril 40 Mg Tablet Lisinopril 40 Mg Tablet Yes 40 Daily [facility] Metformin Hcl 1,000 Mg Tablet Metformin Hcl 1,000 Mg Tablet Yes 1000 Twice A Day [facility] Metoprolol Tartrate 25 Mg Tablet Metoprolol Tartrate 25 Mg Tablet Yes 25 Twice A Day [facility] Pravastatin Sodium 40 Mg Tablet Pravastatin Sodium 40 Mg Tablet Yes 20 Bedtime [facility] Spironolactone 25 Mg Tablet Spironolactone 25 Mg Tablet Yes 25 Twice A Day [facility] Ciprofloxacin/Ciprofloxa Hcl (Ciprofloxa bernardo Er 500 Mg Tablet) 500 Mg Tbmp.24hr, 1 Tab Oral Ciprofloxacin/Ciprofloxa Hcl (Ciprofloxa bernardo Er 500 Mg Tablet) 500 Mg Tbmp.24hr, 1 Tab Oral 2017-04-04 00:00:00 No 1 Tw ice A Day [facility] Magnesium Oxide 400 Mg Tablet, 400 Mg Oral Magnesium O xide 400 Mg Tablet, 400 Mg Oral 2017-04-04 00:00:00 No 400 Twice A Day [facility] Neomycin/Polymyxin B Sulf/Hc (Cortispori n Ear Solution) 10 Ml Solution, 4 Each Ear Neomycin/Polymyxin B Sulf/Hc (Cortispori n Ear Solution) 10 Ml Solution, 4 Each Ear 2017-04-04 00:00:00 No 4 Four Times Cindy y [facility] Procedures Procedure Date / Time Performed Performing Clinician [facility] e X-ray of chest, single view 2019-12-06 00:00:00 [place] FAWADARISTEO Rubio [facility] Encounters Start Date/Time End Date/Time Encounter Type Admission Type Attendi [facility] Care Department Encounter ID Source 2019-12-06 17:34:00 2019-12-06 22:00:00 Departed Emergency Room 1 [place] [facility] [id number] [facility] 2018-03-14 03:17:00 2018-03-14 06:15:00 Departed Emergency Room 1 [place] [facility] [id number] [facility] Results Test Description Test Time Test Comments Results Result Comments Source CXR 2 VIEW - HOPD 2020-04-12 13:29:00 [facility] [address] [place] [address] Patient Name: MARK CASON MR #: [id number] : 1930 Age/Sex: 89/F Req #: [id number] Adm Physician: Ordered by: ANIVAL SPARKS MD Report #: [id number] Location: [facility] Room/Bed: Procedure: [id number] HOPD/CXR 2 VIEW - HOPD Exam Date: 04/12/20 Exam Time: 1326 REPORT STATUS: Signed EXAMINATION: CXR 2 VIEW - HOPD INDICATION: Shortness of breath COMPARISON: None FINDINGS: LINES/TUBES:None LUNGS:The lungs are well-inflated. No focal consolidation or pulmonary edema. PLEURA:No pleural effusion or pneumothorax. MEDIASTINUM:The cardiomediastinal silhouette appears normal in size and shape. BONES/SOFT TISSUES:No acute osseous injury. ABDOMEN:No free air under the diaphragm. IMPRESSION: No focal pneumonia or pulmonary edema. Signed by: Stanton Church MD on 04/12/2020 1:29 PM Dictated By: STANTON CHURCH MD 28 Transcribed By: ALISHA GALLARDO on 04/12/201328 COPY TO: ANIVAL SPARKS MD Magnesium Level 2019-12-06 21:00:00 Test Item Magnesium Level (test code = 28073-4) 1.4 1.3-2.1 [facility]wayB-Type Natriuretic Powojny7517-04-69 20:56:00* Test Item Value Reference Range Interpretation Comments B-Type Natriuretic Peptide (test code = 58477-5) 34.4 0-100 [facility]wayCreatine Kinase [id number] 20:39:00* Test Item Value Reference Range Interpretation Comments Creatine Kinase MB (test code = 30535-7) 0.80 0-5.0 [facility]wayTroponin [id number] 20:39:00* Test Item Value Reference Range Interpretation Comments Troponin I (test code = FIW3193) < 0.001 0-0.300 [facility] Parkwayodium [id number] 20:31:00* Test Item Value Reference Range Interpretation Comments Sodium Level (test code = 2951-2) 138 136-145 [facility]wayPotassium Aosaz8937-53-10 20:31:00* Test Item Value Reference Range Interpretation Comments Potassium Level (test code = 2823-3) 4.2 3.5-5.1 [facility] LakewayChloride [id number] 20:31:00* Test Item Value Reference Range Interpretation Comments Chloride Level (test code = 2075-0) 101 98-107 [facility] LakewayCarbon Dioxide [id number] 20:31:00* Test Item Value Reference Range Interpretation Comments Carbon Dioxide Level (test code = 2028-9) 23 22-29 [facility] LakewayAnion [id number] 20:31:00* Test Item Value Reference Range Interpretation Comments Anion Gap (test code = 42229-5) 18.2 8-16 H [facility] LakewayBlood Urea Miamzpax1290-55-78 20:31:00* Test Item Value Reference Range Interpretation Comments Blood Urea Nitrogen (test code = 3094-0) 19 7-26 [facility] LakewayCreatinine2020-02-04 20:31:00* Test Item Value Reference Range Interpretation Comments Creatinine (test code = 2160-0) 0.94 0.57-1.11 [facility] LakewayBUN/Creatinine Bmdnb3071-72-62 20:31:00* Test Item Value Reference Range Interpretation Comments BUN/Creatinine Ratio (test code = 3097-3) 20 6-25 [facility] LakewayEstimat Glomerular Filtration Rate 2019-12-06 20:31:00* Test Item Value Reference Range Interpretation Comments Estimat Glomerular Filtration Rate (test code = 942631646) 56 >60 L Ranges were taken from the National Kidney Disease Education Program and the [facility] literature.Reference ranges:60 or greater: Fwwzyi97-43 ( for 3 consecutive months): Chronic kidney disease 15 or less: Kidney failureBaylor Scott & White Medical Center – LakewayGlucose Lnbvd0382-69-47 20:31:00* Test Item Value Reference Range Interpretation Comments Glucose Level (test code = XDT6890) 111 74-118 [facility] LakewayCalcium Cpwfd7560-35-96 20:31:00* Test Item Value Reference Range Interpretation Comments Calcium Level (test code = 34950-2) 9.8 8.4-10.2 [facility] LakewayTotal Lnqypsjmf5357-31-50 20:31:00* Test Item Value Reference Range Interpretation Comments Total Bilirubin (test code = 1975-2) 0.3 0.2-1.2 [facility] LakewayAspartate Amino Transf (AST/SGOT) 2019-12-06 20:31:00* Test Item Value Reference Range Interpretation Comments Aspartate Amino Transf (AST/SGOT) (test code = Aspartate Amino Transf (AST/SGOT)) 16 5-34 [facility] LakewayAlanine Aminotransferase (ALT/SGPT) 2019-12-06 20:31:00* Test Item Value Reference Range Interpretation Comments Alanine Aminotransferase (ALT/SGPT) (test code = 1742-6) 22 0-55 [facility] LakewayTotal Dtstxse6079-54-41 20:31:00* Test Item Value Reference Range Interpretation Comments Total Protein (test code = 2885-2) 6.9 6.5-8.1 [facility] LakewayAlbumin2020-02-04 20:31:00* Test Item Value Reference Range Interpretation Comments Albumin (test code = 1751-7) 3.8 3.5-5.0 [facility] LakewayGlobulin2020-02-04 20:31:00* Test Item Value Reference Range Interpretation Comments Globulin (test code = 47659-1) 3.1 2.3-3.5 [facility] LakewayAlbumin/Globulin Fnmao6810-76-28 20:31:00 * Test Item Value Reference Range Interpretation Comments Albumin/Globulin Ratio (test code = 1759-0) 1.2 0.8-2.0 [facility] LakewayAlkaline Uddmumojarh3569-84-18 20:31:00* Test Item Value Reference Range Interpretation Comments Alkaline Phosphatase (test code = 6768-6) 53 40-150 [facility] LakewayCreatine Hhtwsy3937-02-61 20:31:00* Test Item Value Reference Range Interpretation Comments Creatine Kinase (test code = 2157-6) 116 29-168 [facility] LakewayProthrombin Yxtt0032-63-15 20:22:00* Test Item Value Reference Range Interpretation Comments Prothrombin Time (test code = 5902-2) 13.2 11.9-14.5 [facility] LakewayProthromb Time International Ratio 2019-12-06 20:22:00* Test Item Value Reference Range Interpretation Comments Prothromb Time International Ratio (test code = 6301-6) 0.98 Oral Anticoagulant Therapy INR Values:1. Low Intensity Therapy 1.5 - 2.02 . Moderate Intensity Therapy 2.0 - 3.03. High Intensity Therapy(1) 2.5 - 3. 54. High Intensity Therapy(2) 3.0 - 4.05. Panic Value INR > 5.0 [facility] LakewayActivated Partial Thromboplast Time 2019-12-06 20:22:00* Test Item Value Reference Range Interpretation Comments Activated Partial Thromboplast Time (test code = 27790-2) 27.1 23.8-35.5 [facility] LakewayWhite Blood [id number] 20:18:00* Test Item Value Reference Range Interpretation Comments White Blood Count (test code = 6690-2) 10.48 4.8-10.8 [facility] LakewayRed Blood Opfnd6754-69-57 20:18:00* Test Item Value Reference Range Interpretation Comments Red Blood Count (test code = 789-8) 4.08 3.6-5.1 [facility] LakewayHemoglobin2020-02-04 20:18:00* Test Item Value Reference Range Interpretation Comments Hemoglobin (test code = 73732-6) 12.3 12.0-16.0 [facility] LakewayHematocrit2020-02-04 20:18:00* Test Item Value Reference Range Interpretation Comments Hematocrit (test code = 4544-3) 37.8 34.2-44.1 [facility] LakewayMean Corpuscular Muupgu5723-63-89 20:18:00* Test Item Value Reference Range Interpretation Comments Mean Corpuscular Volume (test code = 787-2) 92.6 81-99 [facility] LakewayMean Corpuscular Xlplxdgkje4898-56-48 20:18:00* Test Item Value Reference Range Interpretation Comments Mean Corpuscular Hemoglobin (test code = 785-6) 30.1 28-32 [facility] LakewayMean Corpuscular Hemoglobin Concent 2019-12-06 20:18:00* Test Item Value Reference Range Interpretation Comments Mean Corpuscular Hemoglobin Concent (test code = 786-4) 32.5 31-35 [facility] LakewayRed Cell Distribution [id number] 20:18:00* Test Item Value Reference Range Interpretation Comments Red Cell Distribution Width (test code = 01698-9) 13.8 11.7 -14.4 [facility] LakewayPlatelet Yhhxy3847-08-79 20:18:00* Test Item Value Reference Range Interpretation Comments Platelet Count (test code = 777-3) 266 140-360 [facility] LakewayNeutrophils (%) (Auto)2019-12-06 20:18:00 * Test Item Value Reference Range Interpretation Comments Neutrophils (%) (Auto) (test code = 68953-7) 60.1 38.7-80.0 [facility] LakewayLymphocytes (%) (Auto)2019-12-06 20:18:00 * Test Item Value Reference Range Interpretation Comments Lymphocytes (%) (Auto) (test code = 736-9) 30.5 18.0-39.1 [facility] LakewayMonocytes (%) (Auto)2019-12-06 20:18:00* Test Item Value Reference Range Interpretation Comments Monocytes (%) (Auto) (test code = 5905-5) 6.8 4.4-11.3 [facility]wayEosinophils (%) (Auto)2019-12-06 20:18:00 * Test Item Value Reference Range Interpretation Comments Eosinophils (%) (Auto) (test code = 713-8) 1.7 0.0-6.0 [facility] LakewayBasophils (%) (Auto)2019-12-06 20:18:00* Test Item Value Reference Range Interpretation Comments Basophils (%) (Auto) (test code = 706-2) 0.6 0.0-1.0 [facility] LakewayIM GRANULOCYTES %2019-12-06 20:18:00* Test Item Value Reference Range Interpretation Comments IM GRANULOCYTES % (test code = IM GRANULOCYTES %) 0.3 0.0- 1.0 [facility] LakewayNeutrophils # (Auto)2019-12-06 20:18:00* Test Item Value Reference Range Interpretation Comments Neutrophils # (Auto) (test code = 751-8) 6.3 2.1-6.9 [facility] LakewayLymphocytes # (Auto)2019-12-06 20:18:00* Test Item Value Reference Range Interpretation Comments Lymphocytes # (Auto) (test code = 75764-8) 3.2 1.0-3.2 [facility] LakewayMonocytes # (Auto)2019-12-06 20:18:00* Test Item Value Reference Range Interpretation Comments Monocytes # (Auto) (test code = 742-7) 0.7 0.2-0.8 [facility]wayEosinophils # (Auto)2019-12-06 20:18:00* Test Item Value Reference Range Interpretation Comments Eosinophils # (Auto) (test code = 711-2) 0.2 0.0-0.4 [facility] LakewayBasophils # (Auto)2019-12-06 20:18:00* Test Item Value Reference Range Interpretation Comments Basophils # (Auto) (test code = 704-7) 0.1 0.0-0.1 [facility] LakewayAbsolute Immature Granulocyte (auto 2019-12-06 20:18:00* Test Item Value Reference Range Interpretation Comments Absolute Immature Granulocyte (auto (ann t code = Absolute Immature Granulocyte (auto) 0.03 0-0.1 [facility]2019-12-06 18:24:00 [place] [address] Patient Name: MARK CASON MR #: [id number] : 1930 Age/Sex: 89/F Req #: [id number] Adm Physician: Ordered by: IMELDA MIX MD Report #: [id number] Location: ER Room/Bed: Procedure: [id number] DX/C HEST SINGLE (NOT PORTABLE) Exam Date: [...] TO: IMELDA MIX MD CT BRAIN WO [place] [address] Patient Name: MARK CASON MR #: [id number] : 1930 Age/Sex: 87/F Req #: [id number] Adm Physician: Ordered by: IMELDA MIX MD Report #: [id number] Location: ER Room/Bed: Procedure: [id number] CT/CT BRAIN WO Exam Date: 03/02 01/17 [...] IMELDA MIX MD CT CERVICAL SPINE WO [place] [address] Patient Name: MARK CASON MR #: [id number] : 1930 Age/Sex: 87/F Req #: [id number] Adm Physician: Ordered by: IMELDA MIX MD Report #: [id number] Location: ER Room/Bed: Procedure: [id number] CT/CT CERVICAL SPINE WO Exam D ate: [...]
--- NOTE | 2020-04-12 16:05 | Diagnostic Imaging Report ---
EXAM: CT Chest WITH contrast- Pulmonary Embolism Protocol INDICATION: Shortness of breath, elevated d-dimer COMPARISON: Chest radiograph 12/06/2019 TECHNIQUE: Chest was scanned utilizing a multidetector helical scanner from the lung apex through the level of the diaphragm after administration of IV contrast. Thin section reconstructions were obtained with special concentration on the pulmonary arteries. Coronal and sagittal reformations were obtained. Pulmonary embolism protocol was performed. IV CONTRAST: 100 cc of Isovue 370 RADIATION DOSE: Total DLP: 415 mGy*cm Dose modulation, iterative reconstruction, and/or weight based adjustment of the mA/kV was utilized to reduce the radiation dose to as low as reasonably achievable. COMPLICATIONS: None FINDINGS: LINES/ TUBES: None. PULMONARY ARTERIES: No filling defect is identified within the pulmonary arteries to the segmental level. The subsegmental pulmonary arteries are not well opacified. Main pulmonary artery measures 2.8 cm in diameter. No right heart strain. LUNGS AND AIRWAYS: The central airways are patent. No focal consolidation or pulmonary edema. No suspicious pulmonary nodules. PLEURA: The pleural spaces are clear. HEART AND MEDIASTINUM: Subcentimeter right lower pole thyroid nodule is likely benign and does not require further imaging follow-up. No supraclavicular, axillary, mediastinal, or hilar lymphadenopathy. The heart is not enlarged. No pericardial effusion. Mild scattered atherosclerotic calcifications involve the thoracic aorta and coronary arteries. UPPER ABDOMEN: Moderate sliding hiatal hernia. Mild thickening of both adrenal glands without discrete nodule. 1 cm left upper pole renal cyst. BONES: No acute osseous injury. No suspicious lytic or blastic lesions. Degenerative changes of the visualized spine. SOFT TISSUES: Unremarkable. IMPRESSION: No pulmonary embolism. No focal pneumonia or pulmonary edema. Signed by: Domingo Bhatia MD on 04/12/2020 4:02 PM
--- NOTE | 2020-04-12 16:09 | NUR ---
{null, Called [facility] to transport pt to room 205 }
[2020-04-12] MEDS: FAMOTIDINE 20 MG TAB PO SCH (16:30)
--- NOTE | 2020-04-12 16:45 | NUR ---
{null, Report to JESENIA Agee }
--- NOTE | 2020-04-12 17:15 | NUR ---
{null, PT TO THE ROOM AT THIS TIME. PT'S VITALS WNL. PT DENIES NEEDS AT THIS TIME. }
[2020-04-12 17:30] VITALS: BP 161/94
[2020-04-12 20:00] VITALS: BP 163/95
--- NOTE | 2020-04-12 20:10 | NUR ---
{null, Assisted to use rest room.voided.back to bed safely. }
[2020-04-12] MEDS ORDERED: ZOLPIDEM TARTRATE 5 MG TAB PO PRN (21:00)
[2020-04-12 21:20] VITALS: BP 163/95
[2020-04-13] VITALS (8 sets, daily range): BP systolic 127–154; BP diastolic 87–98
--- NOTE | 2020-04-13 06:47 | NUR ---
{null, Bed side shift report given to oncoming RN.stable condition. }
[2020-04-13 06:57] LABS: BASOPHILS # (AUTO) 0.1 (0.0-0.1); BASOPHILS % 0.4 % (0.0-1.0); EOSINOPHILS # (AUTO) 0.1 (0.0-0.4); EOSINOPHILS % 0.9 % (0.0-6.0); HEMATOCRIT 38.2 % (34.2-44.1); HEMOGLOBIN 12.6 g/dL (12.0-16.0); LYMPHOCYTES # (AUTO) 2.5 (1.0-3.2); LYMPHOCYTES % 21.5 % (18.0-39.1); MEAN CORPUSCULAR HEMOGLOBIN 31.8 pg (28-32); MEAN CORPUSCULAR VOLUME 96.5 fL (81-99); MONOCYTES # (AUTO) 0.9 (0.2-0.8); MONOCYTES % 7.6 % (4.4-11.3); NEUTROPHILS # (AUTO) 7.9 (2.1-6.9); NEUTROPHILS % 69.2 % (38.7-80.0); PLATELET COUNT 247 x10e3/uL (140-360); RED BLOOD COUNT 3.96 x10e6/uL (3.6-5.1); RED CELL DISTRIBUTION WIDTH 14.3 % (11.7-14.4)
--- NOTE | 2020-04-13 07:00 | NUR ---
{null, BEDSIDE SHIFT REPORT RECEIVED FROM MANAGER VALIDATION RN. PT DENIES NEEDS AT THIS TIME. }
[2020-04-13 07:26] LABS: ANION GAP 15.9 mmol/L (8-16); BLOOD UREA NITROGEN 10 mg/dL (7-26); BUN/CREATININE RATIO 12 (6-25); CARBON DIOXIDE 26 mmol/L (22-29); CHLORIDE 102 mmol/L (98-107); CREATININE, SERUM 0.82 mg/dL (0.57-1.11); EST GLOMERULAR FILTRATION RATE > 60 ML/MIN (60-); GLUCOSE 111 mg/dL (74-118); POTASSIUM 3.9 mmol/L (3.5-5.1); SODIUM 140 mmol/L (136-145)
[2020-04-13] MEDS: FAMOTIDINE 20 MG TAB PO SCH ×2 (07:30→16:30)
[2020-04-13] MEDS: SPIRONOLACTONE 25 MG TAB PO SCH ×2 (08:50→17:26)
[2020-04-13] MEDS: ASPIRIN 81 MG CHEW TAB PO SCH (08:50)
[2020-04-13] MEDS: METOPROLOL TARTRATE 25 MG TAB PO SCH ×2 (08:50→17:27)
[2020-04-13] MEDS: LISINOPRIL 20 MG TAB PO SCH (08:51)
[2020-04-13] MEDS: CLOPIDOGREL BISULFATE 75 MG TAB PO SCH (08:51)
[2020-04-13] MEDS: DILTIAZEM HCL CR 120MG TAB PO SCH ×2 (08:52→17:27)
[2020-04-13] MEDS ORDERED: CEFTRIAXONE SOD 1 GRAM/0.9% SOD CHL 50ML BAG IV SCH (09:00)
--- NOTE | 2020-04-13 09:40 | NUR ---
{null, Pt unavailable at this time. Will follow up as able. [facility] Crew Caller Spiritual Care Department O: [phone] }
[2020-04-13] MEDS ORDERED: CEFTRIAXONE SOD 1 GM/NS 50 ML 50 ML IV SCH (14:00)
--- NOTE | 2020-04-13 14:08 | History and Physical ---
HISTORY OF PRESENT ILLNESS: The patient is an 89-year-old female, who came in with shortness of breath and also difficulty urination for a few days to a month. The patient came in and was admitted to the hospital for acute urosepsis. PAST MEDICAL HISTORY: History of hypertension, history of coronary artery disease, history of diabetes, history of hyperlipidemia. PAST SURGICAL HISTORY: History of cholecystectomy, hysterectomy, , cataract surgery. The patient also had cardiac stents put in by Dr. Olvera. Parathyroidectomy, hemorrhoidectomy, bowel resection, and also history of carpal tunnel repair on the right hand. SOCIAL HISTORY: Never smoker. No EtOH. No IV drug abuse. No history of exposure to COVID either. FAMILY HISTORY: Positive for CAD and hypertension. ALLERGIES: ALLERGY TO MEPERIDINE AND HYDROCHLORIDE. REVIEW OF SYSTEMS: Negative for chest pain. Positive for dysuria. No nausea, no vomiting. No diarrhea. Positive for fatigue and generalized debility. No constipation. No rectal bleeding. No hematochezia. No hematemesis. PHYSICAL EXAMINATION: GENERAL: The patient is alert and oriented x3. Hard of hearing. VITAL SIGNS: Temp is 97.8, pulse of 96, respirations of 18, blood pressure is 154/88, pulse oximetry of 95%. HEENT: Normocephalic, atraumatic. The patient looks weak and feeble. CVS: S1 and S2 normal. Regular rate and rhythm. LUNGS: Clear to auscultation. ABDOMEN: Tender in the suprapubic area. EXTREMITIES: No clubbing. No cyanosis and/or no edema. LABORATORY DATA: From hemoglobin is 12.3, hematocrit of 38.0, RDW 13.7. Urine showed nitrate positive, glucose of 100. Sodium was 132, potassium 4.0, glucose of 101, BUN of 12, creatinine of 0.9. BNP was 38.1. The patient's cardiac enzymes were negative, less than of troponin. IMAGING DATA: Imaging studies done. CT of the chest was done because of the shortness of breath. The patient had no pulmonary embolism. No focal pneumonia or pulmonary edema, and chest x-ray showed no focal pneumonia or pulmonary edema. Today's white count is pending. Chemistries are pending for today too. ASSESSMENT: Ms. Marlene Fisher is an 89-year-old female with shortness of breath. 1. Etiology unclear except the patient has history of coronary artery disease. Trend her troponins. 2. Urinary tract infection with urosepsis. We will continue the patient on current and plan. The patient also has flank pain which attributes for pyelonephritis. 3. Hypertension. Continue on same medication. 4. Diabetes. Continue metformin. 5. Hyperlipidemia. Continue on pravastatin. The patient has been given Rocephin 1 g q.12 hours. We will monitor her clinical status. Possible discharge tomorrow. We will get the patient walking. We will talk with the family and continue monitoring her labs for today and tomorrow. Further recommendation per clinical course. We will continue to monitor and await for cultures. We will continue to monitor the patient and discharge in a day. MD CYNDI Smallwood/CANDEL /[id number]
[2020-04-13] MEDS ORDERED: PRAVASTATIN 20 MG TAB PO SCH (21:00)
[2020-04-14] VITALS: BP 137/83
[2020-04-14 04:00] VITALS: BP 149/86
--- NOTE | 2020-04-14 07:00 | NUR ---
{null, BEDSIDE SHIFT REPORT RECEIVED FROM [facility] ARCHITECT RN. PT DENIES NEEDS AT THIS TIME. }
[2020-04-14 07:11] LABS: BASOPHILS % 0.4 % (0.0-1.0); EOSINOPHILS # (AUTO) 0.1 (0.0-0.4); EOSINOPHILS % 1.2 % (0.0-6.0); HEMATOCRIT 41.1 % (34.2-44.1); HEMOGLOBIN 13.5 g/dL (12.0-16.0); LYMPHOCYTES # (AUTO) 1.9 (1.0-3.2); LYMPHOCYTES % 17.6 % (18.0-39.1); MEAN CORPUSCULAR HEMOGLOBIN 31.8 pg (28-32); MEAN CORPUSCULAR HGB CONC 32.8 g/dL (31-35); MEAN CORPUSCULAR VOLUME 96.9 fL (81-99); MONOCYTES # (AUTO) 0.7 (0.2-0.8); MONOCYTES % 6.7 % (4.4-11.3); NEUTROPHILS % 73.8 % (38.7-80.0); PLATELET COUNT 240 x10e3/uL (140-360); RED BLOOD COUNT 4.24 x10e6/uL (3.6-5.1); RED CELL DISTRIBUTION WIDTH 14.2 % (11.7-14.4)
[2020-04-14] MEDS: FAMOTIDINE 20 MG TAB PO SCH (07:30)
[2020-04-14 07:35] LABS: ANION GAP 16.1 mmol/L (8-16); BLOOD UREA NITROGEN 10 mg/dL (7-26); BUN/CREATININE RATIO 12 (6-25); CALCIUM 9.9 mg/dL (8.4-10.2); CARBON DIOXIDE 23 mmol/L (22-29); CHLORIDE 104 mmol/L (98-107); CREATININE, SERUM 0.82 mg/dL (0.57-1.11); EST GLOMERULAR FILTRATION RATE > 60 ML/MIN (60-); GLUCOSE 154 mg/dL (74-118); POTASSIUM 4.1 mmol/L (3.5-5.1); SODIUM 139 mmol/L (136-145)
[2020-04-14 07:55] VITALS: BP 146/96
[2020-04-14] MEDS: DILTIAZEM HCL CR 120MG TAB PO SCH (08:54)
[2020-04-14] MEDS: SPIRONOLACTONE 25 MG TAB PO SCH (08:54)
[2020-04-14] MEDS: ASPIRIN 81 MG CHEW TAB PO SCH (08:54)
[2020-04-14] MEDS: METOPROLOL TARTRATE 25 MG TAB PO SCH (08:55)
[2020-04-14] MEDS: LISINOPRIL 20 MG TAB PO SCH (08:55)
[2020-04-14] MEDS: CLOPIDOGREL BISULFATE 75 MG TAB PO SCH (08:55)
[2020-04-14 09:57] VITALS: BP 146/96
[2020-04-14 11:50] VITALS: BP 120/81
[2020-04-14] MEDS ORDERED: METFORMIN HCL 500 MG TAB PO SCH (17:00)
== END 2020-04-14 14:23 | disposition home or self-care (01) ==
LOC: FSED 12:50 → ERHOLD 15:15 → MED/SURG2 17:15
PROVIDERS: ADMIT Family Medicine; ATTEND Family Medicine
DX: N39.0 Urinary tract infection, site not specified (principal); E78.5 Hyperlipidemia, unspecified; E11.9 Type 2 diabetes mellitus without complications; Z79.4 Long term (current) use of insulin; Z11.59 Encounter for screening for other viral diseases; I25.10 Atherosclerotic heart disease of native coronary artery without angina pectoris; Z95.5 Presence of coronary angioplasty implant and graft
CPT/HCPCS: 36415 ×2; 71046; 71260; 80048 ×2; 80053; 81003; 82553; 82948; 83880; 84484; 85025 ×3; 85379; 87086; 87635; 93005; 97139; 99284; G0378 ×3; J0696 ×2; J7040; Q9967; J1200; J2405

== ENCOUNTER 2020-05-21 08:33 | Emergency (ER) | payer MEDICARE ==
[~2020-05-21] VITALS: Ht 160 cm; Wt 65.3 kg
[2020-05-21] MEDS ORDERED: HYDROCODONE/APAP 5MG-325MG TAB PO ONE (08:45)
--- NOTE | 2020-05-21 09:29 | Emergency Department Note ---
History of Present Illnes History of Present Illness Chief Complaint: Extremity Trauma/Pain History of Present Illness This is a 89 year old female arrived to the ED after sustaining a mechanical fall and landing on the back of the magazine rack. Patient brought in by EMS and was placed on a backboard and c-collar.. Historian: Patient, Customer Success Advocate/EMS Arrival Mode: [facility] Onset (how long ago): hour(s) Radiation: Reports non-radiation Onset quality: sudden Duration (how long): hour(s) Progression: unchanged Chronicity: new Context: Reports trauma/injury Relieving factors: immobilization Exacerbating factors: movement Treatments prior to arrival: none Past Medical/Family History Physician Review I have reviewed the patient's past medical and family history. Any updates have been documented here. Past Medical History Past Medical History: Hypertension, Diabetes, [place], Hypothyroidism, CAD, Hyperlipedemia, Chronic Back Pain Other Medical History: dyslipidemia CHOLESTEROL dyslipidemia radiculitis Past Surgical History: Cholecysctectomy, Hysterectomy, , Hernia Repair, Cataract Removal, Colon Resection, Orthopedic Implants Other Surgery: right shoulder right carpal tunnel parathyroid bowel resection cardiac stent Other Last Tetanus: UNK Review of Systems Review of Systems Constitutional: Reports no symptoms EENTM: Reports no symptoms Cardiovascular: Reports no symptoms Respiratory: Reports no symptoms Gastrointestinal: Reports no symptoms Genitourinary: Reports no symptoms Musculoskeletal: Reports as per HPI, Reports back pain Integumentary: Reports no symptoms Neurological: Reports no symptoms Psychological: Reports no symptoms Endocrine: Reports no symptoms Hematological/Lymphatic: Reports no symptoms Physical Exam Related Data Allergies: Coded Allergies: meperidine HCl (Verified Allergy, Unknown, 03/14/18) Vital signs reviewed: Yes Physical Exam CONSTITUTIONAL Constitutional: Present well-developed, Present well-nourished HENT HENT: Present normocephalic, Present atraumatic, Present oropharynx clear/moist, Present nose normal HENT L/R: Present left ext ear normal, Present right ext ear normal EYES Eyes: Reports PERRL, Reports conjunctivae normal NECK Neck: Present ROM normal PULMONARY Pulmonary: Present effort normal, Present breath sounds normal CARDIOVASCULAR Cardiovascular: Present regular rhythm, Present heart sounds normal, Present capillary refill normal, Present normal rate GASTROINTESTINAL Abdominal: Present soft, Present nontender, Present bowel sounds normal GENITOURINARY Genitourinary: Present exam deferred SKIN Skin: Present warm, Present other (ecchymoses noted over back along T12-L3) MUSCULOSKELETAL NEUROLOGICAL Neurological: Present alert, Present no gross motor or sensory deficits PSYCHOLOGICAL Psychological: Present mood/affect normal, Present judgement normal Results Imaging Imaging results reviewed: Yes Imaging Comments IMPRESSION: 1. Suspected subcutaneous hematomas in the lower back, measuring up to 8 cm in craniocaudal dimension, as described above. This can be correlated with history and physical exam. 2. No acute osseous abnormalities in the lumbar spine. 3. Advanced lower lumbar spondylosis with mild thoracolumbar dextroscoliosis. 4. Grade 1 anterolisthesis of L4 on L5 due to severe bilateral facet arthrosis. 5. Multilevel degenerative canal stenoses - severe at L3-L4; at least moderate at L4-L5. 6. Multilevel degenerative foraminal stenoses - severe on the left at L3-L4 and bilaterally at L4-L5. IMPRESSION: 1. No acute osseous abnormalities. 2. Cannot exclude ligament, spinal cord and or vascular abnormalities on the basis of this examination. 3. Degenerative changes as described above. 4. Incidentally Zenker's diverticulum. IMPRESSION: 1. New small hypodense lesion in the left lateral thalamus may be an chronic lacunar infarct. 2. Otherwise, no acute intracranial abnormalities. No other significant changes compared to head CT dated 03/14/2018. 3. Mild to moderate supratentorial chronic microvascular ischemic change. Generalized cerebral volume loss. Signed by: Dr. Adal Ahuja M.D. on 05/21/2020 9:52 A Assessment & Plan Medical Decision Making MDM 89-year-old female arrives to the ED after sustaining a mechanical fall, hematoma noted in the posterior lumbar spine, however, no acute fracture, patient neurologically intact. Patient stable for discharge home. Assessment & Plan Final Impression: (1) Back pain (2) Traumatic hematoma of lower back Depart Disposition: HOME, SELF-[facility] Meds Reported Medications Aspirin (ASPIR 81) 81 Mg Tablet.dr 81 MG PO DAILY 05/26/13 Spironolactone (SPIRONOLACTONE) 25 Mg Tablet, 25 MG PO BID 05/26/13 Diltiazem Hcl (CARDIZEM) 120 Mg Tablet, 120 MG PO BID 05/26/13 Clopidogrel Bisulfate* (PLAVIX) 75 Mg Tablet, 75 MG PO DAILY 05/26/13 Metformin Hcl (METFORMIN HCL) 1,000 Mg Tablet, 1000 MG PO BID 05/26/13 Lisinopril (LISINOPRIL) 40 Mg Tablet, 40 MG PO DAILY 05/26/13 Metoprolol Tartrate (METOPROLOL TARTRATE) 25 Mg Tablet, 25 MG PO BID 05/26/13 Pravastatin Sodium (PRAVASTATIN SODIUM) 40 Mg Tablet, 20 MG PO HS 05/26/13 Medications in the ED Acetaminophen/ Hydrocodone Bitart 1 ea ONCE ONCE PO ; Start 05/21/20 at 08:45; Stop 05/21/20 at 08:46; Status UNV ANNALISE LARSEN, May 21, 2020 09:29
[2020-05-21] MEDS ORDERED: ONDANSETRON HCL 4 MG ORAL DISINTEGRATING TAB PO ONE (09:45)
--- NOTE | 2020-05-21 09:56 | Diagnostic Imaging Report ---
CT BRAIN WO HISTORY: Fall COMPARISON: Head CT 03/14/2018 Technique: Noncontrast axial scans were obtained from skull base to the vertex. Coronal and sagittal reconstructions obtained from the axial data. One or more of the following dose reduction techniques were used: Automated exposure control, adjustment of the mA and/or kV according to patient size, and/or utilization of iterative reconstruction technique. Beam hardening artifacts obscure some details. DISCUSSION: Scalp/Skull: No calvarial fracture. Small subcutaneous nodular densities in the right posterior parietal scalp may be inclusion cysts. Brain sulci: Mildly prominent. Ventricles: Compensatory dilatation. Extra-axial spaces: No masses or fluid collections. Carotid siphon calcifications are present. Parenchyma: New small hypodense lesion in the left lateral thalamus may be an chronic lacunar infarct. Mild to moderate bilateral deep white matter hypodensity is likely chronic microvascular ischemic change. Otherwise, no masses, hemorrhage, or large vascular territory acute infarct. Dural sinuses: No abnormal densities. Sellar/Suprasellar region: Intact. Skull base: Intact. Incidental findings: Bilateral ocular lens replacement. Minimal right posterior ethmoid air cell opacification. IMPRESSION: 1. New small hypodense lesion in the left lateral thalamus may be an chronic lacunar infarct. 2. Otherwise, no acute intracranial abnormalities. No other significant changes compared to head CT dated 03/14/2018. 3. Mild to moderate supratentorial chronic microvascular ischemic change. Generalized cerebral volume loss. Signed by: Dr. Adal Ahuja M.D. on 05/21/2020 9:52 AM
--- NOTE | 2020-05-21 10:07 | Diagnostic Imaging Report ---
CT CERVICAL SPINE WO HISTORY: Fall COMPARISON: Cervical spine CT 03/14/[address] 04/12/2020 TECHNIQUE: CT of the cervical spine without contrast. Sagittal and coronal reformations were created. One or more of the following dose reduction techniques were used: Automated exposure control, adjustment of the mA and/or kV according to patient size, and/or utilization of iterative reconstruction technique. Motion and dental streak artifacts obscure some details. FINDINGS: Mild bone demineralization limits evaluation. Cervical lordosis is slightly straightened. There is no significant scoliosis. No definite acute fracture or compression deformity is seen. The craniocervical junction is intact. No gross spinal canal masses are seen. The paravertebral and paraspinal soft tissues are unremarkable. Degenerative changes: Mild to moderate multilevel spondylosis is most prominent at C6-C7. Multilevel bilateral facet arthrosis is most prominent on the left at C2-C3; there is associated minimal grade 1 anterolisthesis of C4 on C5 and C7 on T1. Multilevel bilateral foraminal stenoses due to uncovertebral and facet arthrosis are present. Multilevel canal stenoses due to posterior disc osteophyte complexes are also present - at least mild to moderate at C6-C7. Incidental findings: Stable small pocket of air posterior to the junction of the hypopharynx and esophagus is likely a Zenker's diverticulum. Bilateral hypodense thyroid nodules, including a 1.1 cm coarsely calcified nodule in the lower right thyroid lobe, are present; no further imaging is indicated. The bilateral carotid arteries have a retropharyngeal course. IMPRESSION: 1. No acute osseous abnormalities. 2. Cannot exclude ligament, spinal cord and or vascular abnormalities on the basis of this examination. 3. Degenerative changes as described above. 4. Incidentally Zenker's diverticulum. Signed by: Dr. Adal Ahuja M.D. on 05/21/2020 10:04 AM
--- NOTE | 2020-05-21 10:25 | Diagnostic Imaging Report ---
CT LUMBAR SPINE WO HISTORY: Fall COMPARISON: Report from CT of the abdomen/pelvis 04/04/2017 TECHNIQUE: Axial CT images of the lumbar spine were obtained without contrast. Coronal and sagittal reconstructions obtained from the axial data. One or more of the following dose reduction techniques were used: Automated exposure control, adjustment of the mA and/or kV according to patient size, and/or utilization of iterative reconstruction technique. DISCUSSION: Bone demineralization limits evaluation. There are 5 nonrib-bearing lumbar vertebral bodies. Lumbar lordosis is preserved. Mild thoracolumbar dextroscoliosis is centered at approximately L2-L3. No definite acute fracture or compression deformity is seen. No gross spinal canal mass is seen. Approximately 8 cm (craniocaudal dimension) slightly hyperdense subcutaneous lobular mass in the paramedian back spans from approximately T12-L1 to L4-L5. Similar adjacent hypodense subcutaneous mass in the left back at the L2 level measures up to 3.7 cm in transverse dimension. There is prominent local subcutaneous edema. These may be hematomas. There is mild paraspinal muscle atrophy at the lumbosacral junction. Otherwise, the paravertebral and paraspinal soft tissues are unremarkable. Advanced lower lumbar spondylosis is present. T11-T12: At least mild to moderate canal stenosis due to posterior disc osteophyte complex. No significant foraminal stenosis. T12-L1: No gross canal or foraminal stenosis. L1-L2: Mild bilateral foraminal stenoses due to disc bulge. No gross canal stenosis. L2-L3: Mild bilateral foraminal stenoses due to disc bulge. No gross canal stenosis. L3-L4: Severe canal stenosis due to posterior disc osteophyte complex and ligamentum flavum thickening. Mild right and severe left foraminal stenoses due to disc osteophyte complex and facet arthrosis. L4-L5: Grade 1 anterolisthesis of L4 on L5 is due to severe bilateral facet arthrosis. At least moderate canal stenosis due to uncovered disc bulge and ligamentum flavum thickening. Severe bilateral foraminal stenoses, right greater than left, due to uncovered disc bulge and facet arthrosis. L5-S1: Minimal grade 1 anterolisthesis of L5 on S1 due to bilateral facet arthrosis. Mild right and moderate left foraminal stenoses due to disc osteophyte complex and facet arthrosis. Partially imaged mild opacities in the lung bases may be due to atelectasis. Surgical clips are seen in the gallbladder fossa. There is nonspecific thickening of the bilateral adrenal glands. Moderate-sized sliding hiatal hernia is partially imaged. Subcentimeter fluid density lesion in the upper left kidney is likely a cyst. 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 Aortoiliac calcified atherosclerosis is present. Anastomotic sutures at the sigmoid colon are present. Colonic diverticulosis is partially imaged. IMPRESSION: 1. Suspected subcutaneous hematomas in the lower back, measuring up to 8 cm in craniocaudal dimension, as described above. This can be correlated with history and physical exam. 2. No acute osseous abnormalities in the lumbar spine. 3. Advanced lower lumbar spondylosis with mild thoracolumbar dextroscoliosis. 4. Grade 1 anterolisthesis of L4 on L5 due to severe bilateral facet arthrosis. 5. Multilevel degenerative canal stenoses - severe at L3-L4; at least moderate at L4-L5. 6. Multilevel degenerative foraminal stenoses - severe on the left at L3-L4 and bilaterally at L4-L5. Signed by: Dr. Adal Ahuja M.D. on 05/21/2020 10:22 AM
--- NOTE | 2020-05-21 10:29 | Diagnostic Imaging Report ---
EXAM: CT Chest WITHOUT intravenous contrast 05/21/2020 9:22 AM INDICATION: Trauma COMPARISON: Chest CT of 04/12/2020 TECHNIQUE: Chest was scanned utilizing a multidetector helical scanner from the lung apex through the level of the adrenal glands without administration of IV contrast. Coronal and sagittal reformations were obtained. Routine protocol was performed. IV CONTRAST: None RADIATION DOSE: Total DLP: 475 mGy*cm. Dose modulation, iterative reconstruction, and/or weight based adjustment of the mA/kV was utilized to reduce the radiation dose to as low as reasonably achievable. COMPLICATIONS: None FINDINGS: LINES/ TUBES: None. LUNGS AND AIRWAYS: The central airways are patent. No focal consolidation or pulmonary edema. Mild bibasilar dependent subsegmental atelectasis. PLEURA: The pleural spaces are clear. HEART AND MEDIASTINUM: Subcentimeter right and left thyroid nodules are likely clinically insignificant. No supraclavicular, axillary, mediastinal, or hilar lymphadenopathy. The heart is at the upper limits of normal for size. No pericardial effusion. Atherosclerotic calcifications involve the aorta, coronary arteries, and proximal great vessels. UPPER ABDOMEN: Status post cholecystectomy. Moderate sliding hiatal hernia. Bilateral adrenal gland thickening without focal nodule. Left upper pole renal cyst. BONES: No acute osseous injury. No suspicious lytic or blastic lesions. Degenerative changes of the visualized spine and mild diffuse osteopenia. Degenerative changes of both glenohumeral joints. SOFT TISSUES: Unremarkable. IMPRESSION: No evidence of acute traumatic thoracic injury. Signed by: Domingo Bhatia MD on 05/21/2020 10:26 AM
--- NOTE | 2020-05-21 10:39 | Diagnostic Imaging Report ---
TECHNIQUE: Computed imaging of the PELVIS was performed WITHOUT injected contrast using standard departmental protocols. Dose modulation, iterative reconstruction, and/or weight based adjustment of the mA/kV was utilized to reduce the radiation dose to as low as reasonably achievable. HISTORY: pain, trauma COMPARISON: None. FINDINGS: No displaced fracture. Mild degenerative arthrosis of the hips and sacroiliac joints. Chondrocalcinosis of the pubic symphysis. Bone demineralization. Lower lumbar spondylosis. Pelvic colonic diverticulosis. Hysterectomy. IMPRESSION: No displaced fracture Signed by: Dr. Ruben Hutson M.D. on 05/21/2020 10:36 AM
[2020-05-21] MEDS ORDERED: ULTRAM50 MG PO (11:15)
[2020-05-21 11:31] VITALS: BP 161/93
[2020-05-21] MEDS ORDERED: LIDOCAINE 4% PATCH TP SCH (12:00)
== END 2020-05-21 12:07 | disposition home or self-care (01) ==
LOC: ER 08:42
DX: M54.5 Low back pain (principal); S30.0XXA Contusion of lower back and pelvis, initial encounter; S00.83XA Contusion of other part of head, initial encounter; W18.09XA Striking against other object with subsequent fall, initial encounter; Y92.008 Other place in unspecified non-institutional (private) residence as the place of occurrence of the external cause; I10 Essential (primary) hypertension; E11.9 Type 2 diabetes mellitus without complications; I25.10 Atherosclerotic heart disease of native coronary artery without angina pectoris; E78.5 Hyperlipidemia, unspecified; E03.9 Hypothyroidism, unspecified; M54.9 Dorsalgia, unspecified; G89.29 Other chronic pain
CPT/HCPCS: 70450; 71250; 72125; 72131; 72192; 99284

== ENCOUNTER 2021-02-06 18:49 | Emergency (ER) | payer MEDICARE ==
[~2021-02-06] VITALS: Ht 160 cm; Wt 65.3 kg
[~2021-02-06 18:49] MED LIST changes: +ULTRAM50 MG PO
[2021-02-06] MEDS ORDERED: ONDANSETRON HCL INJ 2MG/ML 2ML 2 MG/ML VIAL IV STA (19:41)
[2021-02-06] MEDS ORDERED: FAMOTIDINE 20 MG/2 ML VIAL IV STA (19:41)
[2021-02-06] MEDS ORDERED: SODIUM CHLORIDE 0.9% 500ML 500 ML IV ONE (19:45)
[2021-02-06] MEDS ORDERED: FAMOTIDINE 20 MG/2 ML VIAL IV ONE (19:58)
[2021-02-06] MEDS ORDERED: SODIUM CHLORIDE 0.9% 1000ML 1,000 ML ONE (19:58)
[2021-02-06] MEDS ORDERED: ONDANSETRON HCL INJ 2MG/ML 2ML 2 MG/ML VIAL ONE (19:58)
[2021-02-06] MEDS ORDERED: SODIUM CHLORIDE 0.9% 50ML 50 ML ONE (20:23)
[2021-02-06] MEDS ORDERED: IOPAMIDOL 370 MG/ML 200 ML INFUS..BTL INJ ONE (20:24)
[2021-02-06] MEDS ORDERED: CEFTRIAXONE SOD 1 GM/50 ML BAG IV ONE (23:00)
[2021-02-06] MEDS ORDERED: CEFDINIR300 MG PO ×2 (23:02→23:04)
[2021-02-06] MEDS ORDERED: ONDANSETRON ODT4 MG PO (23:05)
[2021-02-06] MEDS ORDERED: CEFTRIAXONE SOD 1 GM 50 ML IV ONE (23:25)
== END 2021-02-06 23:45 | disposition home or self-care (01) ==
LOC: FSED 18:54
DX: R11.2 Nausea with vomiting, unspecified (principal); K52.9 Noninfective gastroenteritis and colitis, unspecified; D72.829 Elevated white blood cell count, unspecified; J01.90 Acute sinusitis, unspecified; E11.9 Type 2 diabetes mellitus without complications; I10 Essential (primary) hypertension; R94.31 Abnormal electrocardiogram [ECG] [EKG]; Z20.822 Contact with and (suspected) exposure to COVID-19
CPT/HCPCS: 74177; 99284; J0696; J2405; J7030; Q9967; U0002; 93005

== ENCOUNTER 2021-03-07 19:43 | Emergency (ER) | payer OTHER, MEDICARE ==
[~2021-03-07] VITALS: Ht 157.5 cm; Wt 66.2 kg
[~2021-03-07 19:43] MED LIST changes: +CEFDINIR300 MG PO; +ONDANSETRON ODT4 MG PO
[2021-03-07 22:00] VITALS: BP 141/80
== END 2021-03-07 22:00 | disposition home or self-care (01) ==
LOC: FSED 20:03
DX: S01.01XA Laceration without foreign body of scalp, initial encounter (principal); W01.198A Fall on same level from slipping, tripping and stumbling with subsequent striking against other object, initial encounter; Y92.002 Bathroom of unspecified non-institutional (private) residence as the place of occurrence of the external cause; I10 Essential (primary) hypertension; E11.9 Type 2 diabetes mellitus without complications; E03.9 Hypothyroidism, unspecified; I25.10 Atherosclerotic heart disease of native coronary artery without angina pectoris; E78.5 Hyperlipidemia, unspecified; M54.9 Dorsalgia, unspecified; G89.29 Other chronic pain; Z95.5 Presence of coronary angioplasty implant and graft
CPT/HCPCS: 70450; 72125; 80053; 85025; 99283

== ENCOUNTER 2021-05-02 10:26 | Emergency (ER) | payer MEDICARE ==
[~2021-05-02] VITALS: Ht 157.5 cm; Wt 66.2 kg
[2021-05-02] MEDS ORDERED: ONDANSETRON HCL INJ 2MG/ML 2ML 2 MG/ML VIAL IV STA (10:50)
[2021-05-02] MEDS ORDERED: ELIQUIS5 MG PO (10:52)
[2021-05-02] MEDS ORDERED: ASPIRIN 81 MG CHEW TAB PO ONE (11:00)
[2021-05-02 11:08] LABS: BASOPHILS # (AUTO) 0.1 (0.0-0.1); BASOPHILS % 0.7 % (0.0-1.0); EOSINOPHILS # (AUTO) 0.1 (0.0-0.4); EOSINOPHILS % 0.9 % (0.0-6.0); HEMATOCRIT 40.2 % (34.2-44.1); LYMPHOCYTES # (AUTO) 2.4 (1.0-3.2); LYMPHOCYTES % 24.1 % (18.0-39.1); MEAN CORPUSCULAR HGB CONC 32.3 g/dL (31-35); MEAN CORPUSCULAR VOLUME 95.7 fL (81-99); MONOCYTES # (AUTO) 0.6 (0.2-0.8); MONOCYTES % 5.9 % (4.4-11.3); NEUTROPHILS # (AUTO) 6.8 (2.1-6.9); PLATELET COUNT 281 x10e3/uL (140-360); RED CELL DISTRIBUTION WIDTH 13.4 % (11.7-14.4)
[2021-05-02 11:28] LABS: ALANINE AMINOTRANSFERASE 17 IU/L (0-55); ALBUMIN/GLOBULIN RATIO 1.1 (0.8-2.0); ALKALINE PHOSPHATASE 61 IU/L (40-150); ANION GAP 16.2 mmol/L (8-16); BLOOD UREA NITROGEN 14 mg/dL (7-26); BUN/CREATININE RATIO 15 (6-25); CALCIUM 9.6 mg/dL (8.4-10.2); CARBON DIOXIDE 26 mmol/L (22-29); CHLORIDE 98 mmol/L (98-107); CREATINE KINASE 69 IU/L (29-168); CREATININE, SERUM 0.92 mg/dL (0.57-1.11); EST GLOMERULAR FILTRATION RATE 58 ML/MIN (60-); GLUCOSE 109 mg/dL (74-118); MAGNESIUM 1.3 MG/DL (1.3-2.1); POTASSIUM 4.2 mmol/L (3.5-5.1); SODIUM 136 mmol/L (136-145)
[2021-05-02 11:32] LABS: INR 1.29; PARTIAL THROMBOPLASTIN TIME 30.4 seconds (23.8-35.5); PROTHROMBIN TIME 16.8 seconds (11.9-14.5)
[2021-05-02] MEDS ORDERED: SODIUM CHLORIDE 0.9% 50ML 50 ML ONE (12:29)
[2021-05-02] MEDS ORDERED: IOPAMIDOL 370 MG/ML 200 ML INFUS..BTL INJ ONE (12:30)
[2021-05-02] MEDS ORDERED: ONDANSETRON ODT4 MG PO (12:38)
== END 2021-05-02 13:28 | disposition home or self-care (01) ==
LOC: ER 11:28
DX: M79.605 Pain in left leg (principal); M79.89 Other specified soft tissue disorders; R11.2 Nausea with vomiting, unspecified; I10 Essential (primary) hypertension; E11.9 Type 2 diabetes mellitus without complications; E78.5 Hyperlipidemia, unspecified; I25.10 Atherosclerotic heart disease of native coronary artery without angina pectoris; M54.9 Dorsalgia, unspecified; G89.29 Other chronic pain; Z98.0 Intestinal bypass and anastomosis status; I25.2 Old myocardial infarction; Z95.5 Presence of coronary angioplasty implant and graft; Z86.718 Personal history of other venous thrombosis and embolism
CPT/HCPCS: 36415; 71260; 80053; 82550; 82553; 83735; 83880; 84484; 85025; 85610; 85730; 93005; 93971; 99284; J2405; Q9967

== ENCOUNTER 2022-07-11 16:39 | Observation (INO) | payer MEDICARE ==
[~2022-07-11] VITALS: Ht 157.5 cm; Wt 65.8 kg
[~2022-07-11 16:39] MED LIST changes: +ELIQUIS5 MG PO
[2022-07-11] MEDS ORDERED: LASIX20 MG PO (18:41)
[2022-07-11] MEDS ORDERED: CALCET TABLET1 EACH PO (18:42)
[2022-07-11] MEDS ORDERED: B12 ACTIVE1000 MCG (18:44)
[2022-07-11] MEDS ORDERED: OMEPRAZOLE40 MG PO (18:45)
[2022-07-11] MEDS ORDERED: Morphine 4mg INJECTION 4 MG/ML INJ IV PRN (19:15)
[2022-07-11] MEDS ORDERED: ONDANSETRON HCL INJ 2MG/ML 2ML 2 MG/ML VIAL IV PRN (19:15)
[2022-07-11] MEDS ORDERED: Morphine 2mg Syringe 2 MG/ML SYR IV ONE (19:45)
[2022-07-11 20:57] VITALS: BP 136/79
[2022-07-11 21:00] VITALS: BP 136/79
[2022-07-11] MEDS ORDERED: ULTRAM50 MG PO (22:57)
[2022-07-11] MEDS ORDERED: VITAMIN B-121000 MCG IM (22:57)
[2022-07-12] VITALS (7 sets, daily range): BP systolic 127–154; BP diastolic 77–100
[2022-07-12] MEDS ORDERED: TRAMADOL HCL 50 MG TAB PO PRN (08:30)
[2022-07-12] MEDS ORDERED: ONDANSETRON HCL 4 MG ORAL DISINTEGRATING TAB PO PRN (08:30)
[2022-07-12] MEDS ORDERED: METFORMIN HCL 500 MG TAB PO SCH (09:00)
[2022-07-12] MEDS: CLOPIDOGREL BISULFATE 75 MG TAB PO SCH (12:00)
[2022-07-12] MEDS: PANTOPRAZOLE SOD 40 MG TABEC PO SCH (12:00)
[2022-07-12] MEDS: SPIRONOLACTONE 25 MG TAB PO SCH (12:00)
[2022-07-12] MEDS: FUROSEMIDE 20 MG TAB PO SCH (12:00)
[2022-07-12] MEDS: DILTIAZEM HCL ER 120 MG CAP PO SCH (12:00)
[2022-07-12] MEDS: METFORMIN HCL 500 MG TAB PO SCH (17:00)
[2022-07-12] MEDS ORDERED: ENOXAPARIN 30 MG/0.3 ML SYR SC SCH (17:00)
[2022-07-12] MEDS ORDERED: METOPROLOL TARTRATE 25 MG TAB PO SCH (21:00)
[2022-07-12] MEDS ORDERED: LISINOPRIL 10 MG TAB PO SCH (21:00)
[2022-07-12] MEDS ORDERED: PRAVASTATIN 20 MG TAB PO SCH (21:00)
[2022-07-13 00:01] VITALS: BP 142/72
[2022-07-13 00:12] VITALS: BP 142/72
[2022-07-13 04:00] VITALS: BP 142/87
[2022-07-13 08:00] VITALS: BP 133/75
[2022-07-13] MEDS: DILTIAZEM HCL ER 120 MG CAP PO SCH (10:07)
[2022-07-13] MEDS: SPIRONOLACTONE 25 MG TAB PO SCH (10:07)
[2022-07-13] MEDS: CLOPIDOGREL BISULFATE 75 MG TAB PO SCH (10:08)
[2022-07-13] MEDS: FUROSEMIDE 20 MG TAB PO SCH (10:08)
[2022-07-13] MEDS: PANTOPRAZOLE SOD 40 MG TABEC PO SCH (10:08)
[2022-07-13] MEDS: METFORMIN HCL 500 MG TAB PO SCH (10:08)
[2022-07-13 12:00] VITALS: BP 127/76
== END 2022-07-13 13:03 | disposition home or self-care (01) ==
LOC: FSED 16:44 → ERHOLD 19:11 → MED/SURG 20:55
PROVIDERS: ADMIT Family Medicine; ATTEND Family Medicine
DX: S22.089A Unspecified fracture of T11-T12 vertebra, initial encounter for closed fracture (principal); W19.XXXA Unspecified fall, initial encounter; E11.9 Type 2 diabetes mellitus without complications; D64.9 Anemia, unspecified; E03.9 Hypothyroidism, unspecified; E78.5 Hyperlipidemia, unspecified; I25.10 Atherosclerotic heart disease of native coronary artery without angina pectoris; I25.2 Old myocardial infarction; Z20.822 Contact with and (suspected) exposure to COVID-19
CPT/HCPCS: 0223U; 36415 ×3; 70450; 71045; 72125; 72131; 80053; 81003; 82553; 82948 ×2; 83880; 84484; 85025; 93005; 94799 ×2; 97110; 97116; 97161; 97530; 99284; G0378 ×3; S0164 ×2; J1650